=== PATIENT | female | born 1955 | race African-American/Black ===

== ENCOUNTER 2017-09-10 08:13 | Emergency (ER) | payer OTHER ==
[2017-09-10 08:28] VITALS: TEMP 98.2; BMI 40.3
--- NOTE | 2017-09-10 08:56 | PDOC ---
History of Present Illness - General History Source: Patient Exam Limitations: No Limitations - History of Present Illness Initial Comments: CHIEF COMPLAINT: 61 y/o afebrile female with PMH HTN, HLD, vertigo and NIDDM c/ o lightheaded feeling this morning. HISTORY OF PRESENT ILLNESS: The patient states she woke up this morning and felt the left side of her neck pulsating. She got up to use the bathroom and felt lightheaded. She urinated and states it smelled sweet. She also noticed blood in the toilet and is not sure if it was blood in her urine or vaginal spotting. She admits she's been feeling weird ever since she got her refill on her lisinopril 3 weeks ago. She states the medicine is from a different die cut operator than she usually gets it from. She denies f/c, CARTER, changes in vision/hearing, slurred speech, n/v/d, CP, SOB, abd pain, back pain, dysuria. She did not check her sugar this morning. She has not taken her Lisinopril for the past 2 days. Vital signs on arrival are notable for BP of 151/88. REVIEW OF SYSTEMS: GENERAL/CONSTITUTIONAL: No fever/chills. No weakness. No weight change. HEAD, EYES, EARS, NOSE AND THROAT: No change in vision. No ear pain or discharge. No sore throat. CARDIOVASCULAR: No chest pain or shortness of breath. RESPIRATORY: No cough, wheezing, or hemoptysis. GASTROINTESTINAL: No abd pain, nausea, vomiting, diarrhea. ?vaginal spotting. GENITOURINARY: ?hematura. No dysuria or frequency. MUSCULOSKELETAL: No joint or muscle swelling or pain. No neck or back pain. SKIN: No rash or easy bruising. NEUROLOGIC: +lightheaded. No headache, loss of consciousness, or loss of sensation. PHYSICAL EXAM: GENERAL: The patient is awake, alert, and fully oriented, in no acute distress. She is morbidly obese, ambulatory female in NAD or obvious discomfort. HEAD: Normal with no signs of trauma. NECK: No carotid bruits noted b/l. ENT: Pupils equal, round and reactive to light, extraocular movements intact, sclera anicteric, conjunctiva clear. No pain with EOMs. No nystagmus. LUNGS: Clear to auscultation bilaterally. Normal excursion. No respiratory distress or use of accessory muscles. CV: RRR, S1/S2, no MRG. Cap refill < 2 sec. ABDOMEN: Soft, non-distended, non-tender even to deep palpation, no hepatomegaly or splenomegaly, no masses. EXTREMITIES: Normal range of motion, no edema. NEUROLOGICAL: Normal speech, normal gait. CN II-XII grossly intact. No slurred speech. No facial drooping. A&O x 4. Normal rapid alternating movement. PSYCH: Normal mood, normal affect. SKIN: Warm, dry, normal turgor, no rashes or lesions noted. <Nehal Noonan - Last Filed: 09/10/17 12:17> <Hilda Guillen - Last Filed: 09/12/17 10:44> - General Chief Complaint: Lightheaded Stated Complaint: DIZZINESS Time Seen by Provider: 09/10/17 08:31 Past History - Past Medical History Anemia: Yes (IRON DEFICIENCY ANEMIA) Asthma: No Cancer: No Cardiac Disorders: No CVA: No COPD: No CHF: No Dementia: No Diabetes: Yes (NIDDM) GI Disorders: Yes (H. PYLORI; HIATAL HERNIA; COLONIC POLYPS) Disorders: No HTN: Yes Hypercholesterolemia: Yes Liver Disease: No Seizures: No Thyroid Disease: No - Immunization History Immunization Up to Date: Yes - Suicide/Smoking/Psychosocial Hx Smoking History: Never smoked Have you smoked in the past 12 months: No Information on smoking cessation initiated: No Hx Alcohol Use: No Drug/Substance Use Hx: No Substance Use Type: None Hx Substance Use Treatment: No <Nehal Noonan - Last Filed: 09/10/17 12:17> <Hilda Guillen - Last Filed: 09/12/17 10:44> - Past Medical History Allergies/Adverse Reactions: Allergies Allergy/AdvReac Type Severity Reaction Status Date / Time No Known Allergies Allergy Verified 09/10/17 08:24 Home Medications: Ambulatory Orders Lisinopril [Prinivil -] 40 mg PO DAILY #30 tablet 06/06/14 Atorvastatin Ca [Lipitor] 20 mg PO HS 09/10/17 Glipizide [Glipizide ER] 2.5 mg PO ASDIR 09/10/17 *Physical Exam - Vital Signs Last Vital Signs Temp Pulse Resp BP Pulse Ox 98.2 F 68 15 151/88 100 09/10/17 08:24 09/10/17 08:24 09/10/17 08:24 09/10/17 08:24 09/10/17 08:24 <Nehal Noonan - Last Filed: 09/10/17 12:17> - Vital Signs Last Vital Signs Temp Pulse Resp BP Pulse Ox 98.2 F 74 18 142/88 99 09/10/17 08:24 09/10/17 12:54 09/10/17 12:54 09/10/17 12:54 09/10/17 12:54 <Hilda Guillen - Last Filed: 09/12/17 10:44> Heart Score/ECG Review - ECG Intrepretation Comment:: Twelve-lead EKG was performed and reviewed by Dr. Guillen. There is sinus bradycardia. The axis is normal. The intervals are normal. There are no ST or T wave abnormalities. Impression: Abnormal twelve-lead EKG <Nehal Noonan - Last Filed: 09/10/17 12:17> ED Treatment Course - LABORATORY CBC & Chemistry Diagram: 09/10/17 09:33 09/10/17 09:33 <Nehal Noonan - Last Filed: 09/10/17 12:17> - LABORATORY CBC & Chemistry Diagram: 09/10/17 09:33 09/10/17 09:33 - ADDITIONAL ORDERS Additional order review: 09/10/17 09:33 Urine Culture - Final Urine - Urine Clean Catch NO GROWTH OBTAINED 09/10/17 09:33 RBC 5.39 H MCV 70.6 L MCHC 32.0 RDW 16.2 H MPV 8.6 Neutrophils % 58.5 Lymphocytes % 30.4 Monocytes % 7.8 Eosinophils % 2.2 Basophils % 1.1 <Hilda Guillen - Last Filed: 09/12/17 10:44> Medical Decision Making - Medical Decision Making A/P: 61 y/o afebrile female feeling lightheaded today with hematuria vs vaginal spotting. Plan is as follows: 1. EKG 2. Labs 3. UA/culture 4. Transvaginal ultrasound Transvaginal Ultrasound IMPRESSION: Fibroid uterus, otherwise normal pelvic sonogram EKG with sinus raf. Labs unremarkable UA with 1+ blood and 2 RBCs Gave all results to the patient who states she feels fine and wants to go home. Will give her a referral to inventory control planner to f/u and suggested she return to the ER with any worsening or concerning symptoms. The patient verbalizes understanding of all instructions, has no further questions and is awaiting discharge. <Nehal Noonan - Last Filed: 09/10/17 12:17> *DC/Admit/Observation/Transfer <Nehal Noonan - Last Filed: 09/10/17 12:17> - Attestations Physician Attestion: I reviewed the case with the mid-level practitioner and agree with the mid- level practitioner's assessment, diagnosis and disposition. <Hilda Guillen - Last Filed: 09/12/17 10:44> Diagnosis at time of Disposition: Lightheaded - Discharge Dispostion Disposition: HOME Condition at time of disposition: Good - Referrals Referrals: Wild Kent MD [Staff Physician] - - Patient Instructions Printed Discharge Instructions: DI for Dizziness-Nonvertigo Additional Instructions: Discharge Instructions: -Drink at least 65oz of water daily -Take your normal medications as prescribed -Follow up with your doctor within 1 week -Follow up with Dr. Kent as soon as possible -return to the ER immediately with any worsening or concerning symptoms
[2017-09-10 09:42] LABS: BASO % 1.1 % (0-2.0); EOS % 2.2 % (0-4.5); HEMATOCRIT 38.1 % (32.4-45.2); HEMOGLOBIN 12.2 GM/dL (10.7-15.3); LYMPH % 30.4 % (8-40); MCH 22.6 pg (25.7-33.7); MEAN CELL VOLUME 70.6 fl (80-96); MEAN PLT VOLUME 8.6 fl (7.5-11.1); MONO % 7.8 % (3.8-10.2); NEUT % 58.5 % (42.8-82.8); PLATELET COUNT 220 K/MM3 (134-434); RBC 5.39 M/mm3 (3.60-5.2); RDW 16.2 % (11.6-15.6); WHITE BLOOD COUNT 5.2 K/mm3 (4.0-10.0)
[2017-09-10 09:44] LABS: URINE APPEARANCE SLCLOUDY; URINE BILIRUBIN NEGATIVE (NEGATIVE); URINE BLOOD 1+ (NEGATIVE); URINE COLOR YELLOW; URINE GLUCOSE (UA) NEGATIVE (NEGATIVE); URINE KETONE NEGATIVE (NEGATIVE); URINE NITRITE NEGATIVE (NEGATIVE); URINE PROTEIN NEGATIVE (NEGATIVE)
[2017-09-10 09:48] LABS: URINE LEUK ESTERASE 1+ (NEGATIVE)
[2017-09-10 09:49] LABS: EPI CELLS FEW /HPF (FEW); URINE BACTERIA RARE /hpf (NONE SEEN); URINE MUCUS RARE
[2017-09-10 10:09] LABS: ALBUMIN 3.4 g/dl (3.4-5.0); ANION GAP 10 (8-16); BILIRUBIN,TOTAL 0.5 mg/dL (0.2-1.0); BLOOD UREA NITROGEN 11 mg/dL (7-18); CALCIUM 8.7 mg/dL (8.5-10.1); CHLORIDE 107 mmol/L (98-107); CO2 24 mmol/L (21-32); CREATININE 0.9 mg/dL (0.55-1.02); GLUCOSE,RANDOM 109 mg/dL (74-106); MAGNESIUM 2.5 mg/dL (1.8-2.4); POTASSIUM 4.3 mmol/L (3.5-5.1); SGOT/AST 13 U/L (15-37); SGPT/ALT 18 U/L (12-78); SODIUM 141 mmol/L (136-145); TOT PROT 7.1 g/dl (6.4-8.2)
[2017-09-10 10:12] LABS: ALK PHOS 82 U/L (45-117)
--- NOTE | 2017-09-10 11:18 | EKG ---
Test Reason : Blood Pressure : / mmHG Vent. Rate : 054 BPM Atrial Rate : 054 BPM P-R Int : 148 ms QRS Dur : 086 ms QT Int : 428 ms P-R-T Axes : 009 001 000 degrees QTc Int : 405 ms SINUS BRADYCARDIA MINIMAL VOLTAGE CRITERIA FOR LVH, MAY BE NORMAL VARIANT POSSIBLE INFERIOR INFARCT , AGE UNDETERMINED CANNOT RULE OUT ANTERIOR INFARCT , AGE UNDETERMINED ABNORMAL ECG WHEN COMPARED WITH ECG OF 18-JAN-2014 08:21, MINIMAL CRITERIA FOR ANTERIOR INFARCT ARE NOW PRESENT NO SIGNIFICANT CHANGE WAS FOUND Confirmed by AG COKER, LANE ([id number]) on 09/10/2017 11:17:27 AM Referred By: Confirmed By:LANE LUONG MD
[2017-09-10 12:55] VITALS: BP 142/88; PULSE 74
== END 2017-09-10 12:55 | disposition home or self-care (01) ==
LOC: SUPCPDRO 08:13 → JER 08:13
DX: R42 Dizziness and giddiness (principal); I10 Essential (primary) hypertension; E78.00 Pure hypercholesterolemia, unspecified; E11.9 Type 2 diabetes mellitus without complications; Z79.84 Long term (current) use of oral hypoglycemic drugs; D50.9 Iron deficiency anemia, unspecified
CPT/HCPCS: 36415; 76830-TC; 80053; 81003; 81015; 82550; 83735; 84484; 85025; 87086; 93005; 93010; 99282-25

== ENCOUNTER 2019-07-25 21:11 | Emergency (ER) | payer OTHER ==
[2019-07-25 22:11] VITALS: TEMP 97.9; BMI 39.2
[2019-07-25] MEDS ORDERED: ASPIRIN 81 MG CHEWABLE TABLETS PO ONE (23:46)
--- NOTE | 2019-07-25 23:57 | PDOC ---
Documentation entered by Saad Coe SCRIBE, acting as scribe for Ashley Mancera MD. Ashley Mancera MD: This documentation has been prepared by the Carolin amador Xhesika, SCRIBE, under my direction and personally reviewed by me in its entirety. I confirm that the documentation accurately reflects all work, treatment, procedures, and medical decision making performed by me. History of Present Illness - General Chief Complaint: Pain Stated Complaint: BACK PAIN Time Seen by Provider: 07/25/19 23:11 History Source: Patient Exam Limitations: No Limitations - History of Present Illness Initial Comments: 07/25/19 23:42 The patient is a 63 year old female with a significant PMH of HTN, DM, HLD and chronic back pain who presents to the emergency department for several days of fatigue. Pt states she was seen at Urgent Care today for her chronic back pain, fatigue and exertional dyspnea and was told to come to the ER. Pt states she missed a couple days of work due to her fatigue and chronic back pain and needs a work note to go back to work([employer]). The patient denies chest pain, headache and dizziness. Denies fever, chills, cough, nausea, vomiting, diarrhea and constipation. Denies dysuria, frequency, urgency and hematuria. Allergies: NKDA Past surgical history: Tubal Ligation PCP: Dr. Jie Ventura Past History - Past Medical History Allergies/Adverse Reactions: Allergies Allergy/AdvReac Type Severity Reaction Status Date / Time No Known Allergies Allergy Verified 07/25/19 22:06 Home Medications: Ambulatory Orders Lisinopril [Prinivil -] 40 mg PO DAILY #30 tablet 06/06/14 Atorvastatin Ca [Lipitor] 20 mg PO HS 09/10/17 Glipizide [Glipizide ER] 2.5 mg PO ASDIR 09/10/17 Anemia: Yes (IRON DEFICIENCY ANEMIA) Asthma: No Cancer: No Cardiac Disorders: No CVA: No COPD: No CHF: No Dementia: No Diabetes: Yes (NIDDM) GI Disorders: Yes (H. PYLORI; HIATAL HERNIA; COLONIC POLYPS) Disorders: No HTN: Yes Hypercholesterolemia: Yes Liver Disease: No Seizures: No Thyroid Disease: No - Immunization History Immunization Up to Date: Yes - Psycho Social/Smoking Cessation Hx Smoking History: Never smoked Have you smoked in the past 12 months: No Information on smoking cessation initiated: No Hx Alcohol Use: No Drug/Substance Use Hx: No Substance Use Type: None Hx Substance Use Treatment: No Review of Systems - Review of Systems Able to Perform ROS?: Yes Comments:: 07/25/19 23:44 GENERAL/CONSTITUTIONAL: No fever or chills.+fatigue CARDIOVASCULAR: No chest pain. + exertional dyspnea RESPIRATORY: No cough, wheezing, or hemoptysis. GASTROINTESTINAL: No nausea, vomiting, diarrhea or constipation. GENITOURINARY: No dysuria, frequency, or change in urination. MUSCULOSKELETAL: No joint or muscle swelling or pain. No neck.+chronic back pain. SKIN: No rash NEUROLOGIC: No headache, vertigo, loss of consciousness, or change in strength/ sensation. ENDOCRINE: No increased thirst. No abnormal weight change. HEMATOLOGIC/LYMPHATIC: No anemia, easy bleeding, or history of blood clots. ALLERGIC/IMMUNOLOGIC: No hives or skin allergy. *Physical Exam - Vital Signs Last Vital Signs Temp Pulse Resp BP Pulse Ox 97.9 F 75 18 141/78 98 07/25/19 22:08 07/25/19 22:08 07/25/19 22:08 07/25/19 22:08 07/25/19 22:08 - Physical Exam 07/25/19 23:45 GENERAL: Awake, alert, and fully oriented, in no acute distress HEAD: No signs of trauma EYES: PERRLA, EOMI, sclera anicteric, conjunctiva clear ENT: Auricles normal inspection, hearing grossly normal, nares patent, oropharynx clear without exudates. Moist mucosa NECK: Normal ROM, supple, no lymphadenopathy, JVD, or masses LUNGS: Breath sounds equal, clear to auscultation bilaterally. No wheezes, and no crackles HEART: Regular rate and rhythm, normal S1 and S2, no murmurs, rubs or gallops ABDOMEN: Soft, nontender, normoactive bowel sounds. No guarding, no rebound. No masses EXTREMITIES: Normal range of motion, no edema. No clubbing or cyanosis. No cords, erythema, or tenderness NEUROLOGICAL: Cranial nerves II through XII grossly intact. Normal speech, normal gait SKIN: Warm, Dry, normal turgor, no rashes or lesions noted. ED Treatment Course - LABORATORY CBC & Chemistry Diagram: 07/26/19 01:00 07/26/19 01:00 - RADIOLOGY Radiology Studies Ordered: Category Date Time Status CHEST PA & LAT [RAD] Stat Radiology 07/25/19 23:46 Ordered Medical Decision Making - Medical Decision Making 07/25/19 23:53 obese 63-year-old female past medical history diabetes, hyperlipidemia, hypertension, chronic low back pain -Has complaint of some fatigue, chronic intermittent low back pain and she noted that when she was exerting herself she feels short of breath She does not have fever or chills or nausea or vomiting or substernal chest pain or dizziness sHe missed several days of work and 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 Jie Rojas Patient states that within the past 12 months she has had a stress test and echo that were normal that Dr. Jie Marte had ordered as an outpatient 63-year-old female who has had some intermittent fatigue and has noted exertional dyspnea with exertion but does not have any significant chest pain She said the symptoms have been intermittent for awhile Patient discharged home to follow-up with her primary care doctor 07/26/19 02:05 07/26/19 02:07 Discharge - Discharge Information Problems reviewed: Yes Clinical Impression/Diagnosis: Exertional dyspnea, Essential hypertension Fatigue Qualifiers: Fatigue type: unspecified Qualified Code(s): R53.83 - Other fatigue Chronic low back pain Qualifiers: Back pain laterality: bilateral Sciatica presence: without sciatica Qualified Code(s): M54.5 - Low back pain Condition: Stable Disposition: HOME - Admission No - Follow up/Referral Referrals: Jie Ventura MD [Primary Care Provider] - - Patient Discharge Instructions Patient Printed Discharge Instructions: DI for High Blood Pressure, DI for Fatigue Additional Instructions: Please follow-up with your primary care provider your lab work did not show any abnormalities Return for any worsening symptoms - Post Discharge Activity Work/Back to School Note: Back to Work
[2019-07-26] MEDS ORDERED: ASPIRIN 81 MG CHEWABLE TABLETS ONE (00:22)
[2019-07-26 01:15] LABS: BASO % 0.9 % (0-2.0); EOS % 3.7 % (0-4.5); HEMATOCRIT 40.2 % (32.4-45.2); HEMOGLOBIN 12.7 GM/dL (10.7-15.3); LYMPH % 26.9 % (8-40); MCH 22.4 pg (25.7-33.7); MCHC 31.5 g/dl (32.0-36.0); MEAN CELL VOLUME 71.1 fl (80-96); MEAN PLT VOLUME 8.1 fl (7.5-11.1); MONO % 8.2 % (3.8-10.2); NEUT % 60.3 % (42.8-82.8); PLATELET COUNT 245 K/MM3 (134-434); RBC 5.65 M/mm3 (3.60-5.2); RDW 15.7 % (11.6-15.6)
[2019-07-26 01:49] LABS: ALBUMIN 3.3 g/dl (3.4-5.0); ALK PHOS 75 U/L (45-117); ANION GAP 6 MMOL/L (8-16); BILIRUBIN,TOTAL 0.2 mg/dL (0.2-1); BLOOD UREA NITROGEN 15.6 mg/dL (7-18); CALCIUM 8.7 mg/dL (8.5-10.1); CHLORIDE 110 mmol/L (98-107); CO2 25 mmol/L (21-32); CREATININE 0.9 mg/dL (0.55-1.3); GLUCOSE,RANDOM 94 mg/dL (74-106); POTASSIUM 4.1 mmol/L (3.5-5.1); SGOT/AST 11 U/L (15-37); SGPT/ALT 19 U/L (13-61); SODIUM 141 mmol/L (136-145); TOT PROT 6.9 g/dl (6.4-8.2)
[2019-07-26 02:14] VITALS: BP 133/80; PULSE 74
--- NOTE | 2019-07-26 10:46 | EKG ---
Test Reason : Blood Pressure : / mmHG Vent. Rate : 071 BPM Atrial Rate : 071 BPM P-R Int : 146 ms QRS Dur : 092 ms QT Int : 400 ms P-R-T Axes : 036 023 025 degrees QTc Int : 434 ms NORMAL SINUS RHYTHM NORMAL ECG WHEN COMPARED WITH ECG OF 10-SEP-2017 09:22, BORDERLINE CRITERIA FOR INFERIOR INFARCT ARE NO LONGER PRESENT Confirmed by LANE LUONG MD ([id number]) on 07/26/2019 10:46:07 AM Referred By: Confirmed By:LANE LUONG MD
== END 2019-07-26 02:14 | disposition home or self-care (01) ==
LOC: JER 21:11
DX: R53.83 Other fatigue (principal); M54.5 Low back pain; G89.29 Other chronic pain; E11.9 Type 2 diabetes mellitus without complications; E78.5 Hyperlipidemia, unspecified; I10 Essential (primary) hypertension
CPT/HCPCS: 36415; 71046-TC-FY; 80053; 82550; 83880; 84484; 85025; 93005; 93010; 99285-25

== ENCOUNTER 2022-07-09 08:56 | Emergency (ER) | payer OTHER ==
[2022-07-09 09:21] VITALS: BMI 40.6
[2022-07-09 12:57] VITALS: BP 165/87; PULSE 94; RESP 16; TEMP 98.8
[2022-07-09 13:12] LABS: BASO % 1.2 % (0-2.0); HEMATOCRIT 37.1 % (32.4-45.2); HEMOGLOBIN 11.6 GM/dL (10.7-15.3); LYMPH % 32.9 % (8-40); MCH 21.7 pg (25.7-33.7); MCHC 31.2 g/dl (32.0-36.0); MEAN CELL VOLUME 69.6 fl (80-96); MEAN PLT VOLUME 9.1 fl (7.5-11.1); MONO % 10.1 % (3.8-10.2); NEUT % 50.8 % (42.8-82.8); PLATELET COUNT 191 10^3/uL (134-434); RBC 5.32 M/mm3 (3.60-5.2); WHITE BLOOD COUNT 6.4 K/mm3 (4.0-10.0)
[2022-07-09 13:51] LABS: ANISOCYTOSIS 2+; MACROCYTOSIS 0
[2022-07-09 13:52] LABS: CALCIUM 8.9 mg/dL (8.5-10.1)
[2022-07-09 13:53] LABS: ALBUMIN 3.2 g/dl (3.4-5.0)
[2022-07-09 13:56] LABS: CREATININE 0.9 mg/dL (0.55-1.3)
[2022-07-09 13:57] LABS: TOT PROT 6.5 g/dl (6.4-8.2)
[2022-07-09 13:58] LABS: BILIRUBIN,TOTAL 0.2 mg/dL (0.2-1)
[2022-07-09 14:00] LABS: N-TERMINAL BNP 60.7 pg/ml (5-125)
== END 2022-07-09 15:00 | disposition home or self-care (01) ==
LOC: JER 08:56
DX: L03.114 Cellulitis of left upper limb (principal)
CPT/HCPCS: 36415; 71046-TC-FY; 80053; 83880; 85025; 93970-TC; 99284-25

== ENCOUNTER 2022-08-26 11:27 | Day surgery (SDC) | payer OTHER ==
[2022-08-19 15:16] VITALS: BMI 40.3
[2022-08-26 11:53] VITALS: TEMP 97.8
[2022-08-26 12:55] VITALS: BP 114/80; PULSE 84; RESP 20
== END 2022-08-26 13:20 | disposition home or self-care (01) ==
LOC: FASU-ENDO 11:27
PROVIDERS: ATTEND Internal Medicine Gastroenterology
PROC: 0DBN8ZX Excision of Sigmoid Colon, Via Natural or Artificial Opening Endoscopic, Diagnostic (ICD-10-PCS; 2022-08-26)
PROC: 0DBM8ZX Excision of Descending Colon, Via Natural or Artificial Opening Endoscopic, Diagnostic (ICD-10-PCS; principal; 2022-08-26 12:08)
DX: Z12.11 Encounter for screening for malignant neoplasm of colon (principal); K63.5 Polyp of colon; K64.1 Second degree hemorrhoids
CPT/HCPCS: 82962; 88305-TC

== ENCOUNTER 2024-02-17 09:41 | Inpatient (IN) | payer OTHER ==
[2024-02-17] MEDS ORDERED: methylPREDNISolone NA SUCC 125 MG/2 ML VIAL ONE (10:21)
[2024-02-17] MEDS ORDERED: FAMOTIDINE 20 MG/50 ML IVPB 20 MG/50 ML MG IVPB ONE (10:22)
[2024-02-17] MEDS: methylPREDNISolone NA SUCC 125 MG/2 ML VIAL IVPUSH ONE (10:25)
[2024-02-17] MEDS: FAMOTIDINE 20 MG/50 ML IVPB 20 MG/50 ML MG IVPB ONE (10:30)
[2024-02-17 10:31] LABS: BASO % 1.2 % (0-2.0); EOS % 13.9 % (0-4.5); HEMATOCRIT 37.9 % (32.4-45.2); HEMOGLOBIN 12.3 GM/dL (10.7-15.3); MCH 22.3 pg (25.7-33.7); MCHC 32.4 g/dl (32.0-36.0); MEAN CELL VOLUME 68.8 fl (80-96); MEAN PLT VOLUME 8.4 fl (7.5-11.1); MONO % 10.1 % (3.8-10.2); NEUT % 59.8 % (42.8-82.8); PLATELET COUNT 201 10^3/uL (134-434); RDW 16.1 % (11.6-15.6); WHITE BLOOD COUNT 6.5 K/mm3 (4.0-10.0)
[2024-02-17 10:37] LABS: INR 0.98 (0.83-1.09); PROTHROMBIN TIME (PATIENT) 11.3 SEC (9.7-13.0)
[2024-02-17 11:08] LABS: POTASSIUM 3.9 mmol/L (3.5-5.1)
[2024-02-17 11:10] LABS: ALBUMIN 3.7 g/dl (3.4-5.0); BLOOD UREA NITROGEN 12.8 mg/dL (7-18); CALCIUM 9.3 mg/dL (8.5-10.1)
[2024-02-17 11:15] LABS: BILIRUBIN,TOTAL 0.3 mg/dL (0.2-1)
[2024-02-17 13:58] LABS: RETICULOCYTES 1.05 % (0.5-1.5)
[2024-02-17] MEDS: ENOXAPARIN NA (PORCINE) 40 MG/0.4 ML DISP.SYRIN SQ SCH (14:56)
[2024-02-17] MEDS ORDERED: INSULIN REGULAR HUMAN 100 UNITS/ML *VIAL ONE (16:50)
[2024-02-17] MEDS ORDERED: INSULIN ASPART SLIDING SCALE (NOVOLOG) 1 VIAL SQ ONE ×2 (16:51→17:13)
[2024-02-17] MEDS: INSULIN ASPART SLIDING SCALE (NOVOLOG) 1 VIAL SQ SCH (16:53)
[2024-02-17] MEDS: DEXAMETHASONE SOD PHOSPHATE 10 MG/1 ML VIAL IVPUSH SCH (17:11)
[2024-02-17 19:42] VITALS: BMI 40.1
[2024-02-17] MEDS: FAMOTIDINE 20 MG/50 ML IVPB 20 MG/50 ML MG IVPB SCH (21:02)
[2024-02-17] MEDS: MUPIROCIN 2% TOPICAL OINTMENT FOR DECOLONIZATION NS SCH (21:02)
[2024-02-17] MEDS: CHLORHEXIDINE GLUCONATE 4% CLEANSER FOR DECOLONIZATION TP SCH (21:02)
[2024-02-18 07:55] LABS: BASO % 0.1 % (0-2.0); HEMATOCRIT 34.6 % (32.4-45.2); HEMOGLOBIN 10.9 GM/dL (10.7-15.3); LYMPH % 9.1 % (8-40); MCHC 31.6 g/dl (32.0-36.0); MEAN CELL VOLUME 69.5 fl (80-96); MONO % 2.3 % (3.8-10.2); NEUT % 88.5 % (42.8-82.8); PLATELET COUNT 200 10^3/uL (134-434); RBC 4.97 M/mm3 (3.60-5.2); WHITE BLOOD COUNT 7.1 K/mm3 (4.0-10.0)
[2024-02-18 08:06] LABS: POTASSIUM 4.3 mmol/L (3.5-5.1)
[2024-02-18 08:08] LABS: CALCIUM 9.1 mg/dL (8.5-10.1)
[2024-02-18 08:09] LABS: ALBUMIN 3.3 g/dl (3.4-5.0); MAGNESIUM 2.1 mg/dL (1.8-2.4)
[2024-02-18 08:13] LABS: BILIRUBIN,TOTAL 0.3 mg/dL (0.2-1); PHOSPHOROUS 3.4 mg/dL (2.5-4.9)
[2024-02-18 08:14] LABS: TOT PROT 6.5 g/dl (6.4-8.2)
[2024-02-18 09:42] VITALS: RESP 18; TEMP 97.9
[2024-02-18 10:04] LABS: ANISOCYTOSIS 2+; MACROCYTOSIS 0; OVALOCYTE 1+
[2024-02-18 10:05] LABS: PLATELET ESTIMATE ADEQUATE
[2024-02-18 10:57] VITALS: BP 148/83; PULSE 80
== END 2024-02-18 11:00 | disposition home or self-care (01) | DRG 916 ==
LOC: JER 09:41 → JERBED 11:19 → JICU 11:55
PROVIDERS: ADMIT Family Medicine; ATTEND Family Medicine
PROC: 30233K1 Transfusion of Nonautologous Frozen Plasma into Peripheral Vein, Percutaneous Approach (ICD-10-PCS; principal; 2024-02-17)
DX: T78.3XXA Angioneurotic edema, initial encounter (principal); I10 Essential (primary) hypertension; C50.919 Malignant neoplasm of unspecified site of unspecified female breast; T46.4X5A Adverse effect of angiotensin-converting-enzyme inhibitors, initial encounter; E11.9 Type 2 diabetes mellitus without complications; E78.5 Hyperlipidemia, unspecified; M06.9 Rheumatoid arthritis, unspecified; D50.9 Iron deficiency anemia, unspecified; K44.9 Diaphragmatic hernia without obstruction or gangrene
CPT/HCPCS: 36415; 36430; 71045-TC-FY; 80053; 82306; 82607; 82728; 82962; 83540; 83550; 83735; 84100; 85025; 85045; 85610; 86850; 86900; 86901; 99291; J1100; P9017